=== PATIENT | male | born 1980 | race Caucasian/White ===

== ENCOUNTER 2016-03-07 03:48 | Inpatient (IN) | payer BC, MEDICAID ==
[~2016-03-07] VITALS: Ht 167.6 cm; Wt 115.2 kg
[2016-03-07] VITALS (9 sets, daily range): BP systolic 112–186; BP diastolic 49–80
[2016-03-07] MEDS ORDERED: SUCCINYLCHOLINE CHLORIDE 20 MG/ML 10ML VIAL IV ONE ×2 (04:20→04:30)
[2016-03-07] MEDS ORDERED: ETOMIDATE (2MG/ML) 20ML VIAL IV ONE ×2 (04:20→04:30)
[2016-03-07 04:33] LABS: Basophils # (auto) 0 uL; Basophils % (auto) 0.5 % (0.0-2.0); Eosinophils # (auto) 0.1 uL; Eosinophils % (auto) 2.5 % (0.0-7.0); Hematocrit 43.5 % (41.0-53.0); Hemoglobin 14.4 g/dL (13.5-17.5); Lymphocytes # (auto) 1.3 uL; Mean Corpuscular Hemoglobin 29.9 pg (28.0-32.0); Mean Corpuscular Volume 90.6 fL (80.0-100.0); Mean Platelet Volume 7.3 fL (7.4-10.4); Monocytes # (auto) 0.6 uL; Monocytes % (auto) 16.7 % (0.0-12.0); Neutrophils # (auto) 1.4 uL; Neutrophils % (auto) 41.3 % (37.0-80.0); Platelet Count (auto) 203 10^3/uL (140-450); Red Cell Distribution Width 14.1 % (11.6-16.0); White Blood Cell 3.5 10^3/uL (4.4-10.8)
[2016-03-07] MEDS ORDERED: PROPOFOL 100 ML IV ONE (04:37)
[2016-03-07] MEDS ORDERED: PROPOFOL 0 ML IV ONE (04:37)
[2016-03-07] MEDS ORDERED: PROPOFOL 100 ML IV SCH (04:45)
[2016-03-07 04:55] LABS: Albumin 3.6 g/dL (3.4-5.0); Anion Gap 8 (5-15); Aspartate Aminotransferase 23 U/L (15-37); BUN/Creatinine Ratio 15.2; Blood Urea Nitrogen 16 mg/dL (7-18); Calcium 7.7 mg/dL (8.5-10.1); Carbon Dioxide 27 mmol/L (21-32); Chloride 107 mmol/L (98-107); GFR African American 103 mL/min; GFR Non-African American 85 mL/min; Glucose 99 mg/dL (74-106); Potassium 3.5 mmol/L (3.5-5.1); Salicylate 1.9 mg/dL (2.8-20.0); Sodium 142 mmol/L (136-145)
[2016-03-07 04:57] LABS: Acetaminophen 6.5 ug/mL (10-30); Alkaline Phosphatase 89 U/L (45-117); Bilirubin, Total 0.2 mg/dL (0.2-1.0)
[2016-03-07 05:00] LABS: Urine RBC None Seen /hpf (0 - 3)
[2016-03-07 05:15] LABS: Urine Bilirubin Negative (Negative); Urine Blood Negative /uL (Negative); Urine Color Yellow (Yellow); Urine Glucose Normal (Normal); Urine Mucus FEW (None Seen); Urine Nitrite Negative (Negative); Urine Urobilinogen Normal (Negative); Urine pH 6.5 (5.0-8.0)
[2016-03-07 05:21] LABS: Urine Ketone 1+ (Negative)
[2016-03-07] MEDS ORDERED: SODIUM CHLORIDE 0.9% 1,000 ML IV ONE (06:30)
[2016-03-07] MEDS: PANTOPRAZOLE SODIUM 40 MG/10 ML VIAL IV SCH (10:10)
[2016-03-07] MEDS: ENOXAPARIN SOD 40 MG/0.4 ML SYRINGE SC SCH (10:10)
[2016-03-07] MEDS: PIPERACILLIN-TAZOB 3.375GM 100 ML IV SCH ×2 (11:29→17:48)
[2016-03-07] MEDS: SODIUM CHLORIDE 0.9% 1,000 ML IV SCH (13:30)
[2016-03-07] MEDS ORDERED: LORazepam 2MG/ML-1ML VIAL IV PRN (18:00)
[2016-03-07] MEDS ORDERED: cloNIDine HCL 0.1 MG TAB PO PRN (22:45)
[2016-03-07] MEDS: OXcarbazepine 300 MG TAB PO SCH (22:55)
[2016-03-08] MEDS: PIPERACILLIN-TAZOB 3.375GM 100 ML IV SCH ×3 (00:09→12:00)
[2016-03-08 00:11] VITALS: BP 164/92
[2016-03-08] MEDS ORDERED: ALPR2TAB2 PO (01:04)
[2016-03-08] MEDS ORDERED: NOR5T PO (01:05)
[2016-03-08 05:00] VITALS: BP 152/92
[2016-03-08 05:02] LABS: Basophils # (auto) 0 uL; Basophils % (auto) 0.3 % (0.0-2.0); Eosinophils # (auto) 0.1 uL; Eosinophils % (auto) 0.9 % (0.0-7.0); Hematocrit 44.7 % (41.0-53.0); Hemoglobin 14.6 g/dL (13.5-17.5); Lymphocytes # (auto) 1.3 uL; Lymphocytes % (auto) 17.8 % (10.0-50.0); Mean Corpuscular Hemoglobin 29.4 pg (28.0-32.0); Mean Corpuscular Hgb Conc. 32.7 g/dL (32.0-36.0); Monocytes # (auto) 0.5 uL; Monocytes % (auto) 6.9 % (0.0-12.0); Neutrophils # (auto) 5.5 uL; Neutrophils % (auto) 74.1 % (37.0-80.0); Platelet Count (auto) 170 10^3/uL (140-450); Red Cell Distribution Width 12.6 % (11.6-16.0); White Blood Cell 7.4 10^3/uL (4.4-10.8)
[2016-03-08 05:17] LABS: Albumin 3.5 g/dL (3.4-5.0); BUN/Creatinine Ratio 11.8; Bilirubin, Total 0.8 mg/dL (0.2-1.0); Potassium 3.9 mmol/L (3.5-5.1); Total Protein 6.9 g/dL (6.4-8.2)
[2016-03-08] MEDS: SODIUM CHLORIDE 0.9% 1,000 ML IV SCH (06:14)
[2016-03-08 09:06] VITALS: BP 151/91
[2016-03-08] MEDS: PANTOPRAZOLE SODIUM 40 MG/10 ML VIAL IV SCH (09:21)
[2016-03-08] MEDS: ENOXAPARIN SOD 40 MG/0.4 ML SYRINGE SC SCH (09:21)
[2016-03-08] MEDS: OXcarbazepine 300 MG TAB PO SCH (09:29)
[2016-03-08 13:06] VITALS: BP 163/87
[2016-03-08 13:36] VITALS: BP 164/92
== END 2016-03-08 15:18 | disposition home or self-care (01) | DRG 917 ==
LOC: EDBD 03:48 → ER 03:49 → TELE 03:50 → TELE-CENTR 23:48
PROVIDERS: ADMIT Family Medicine; ATTEND Internal Medicine
PROC: 0BH17EZ Insertion of Endotracheal Airway into Trachea, Via Natural or Artificial Opening (ICD-10-PCS; principal; 2016-03-07)
PROC: 5A1935Z Respiratory Ventilation, Less than 24 Consecutive Hours (ICD-10-PCS; 2016-03-07)
DX: T42.4X2A Poisoning by benzodiazepines, intentional self-harm, initial encounter (principal); G92 Toxic encephalopathy; J96.00 Acute respiratory failure, unspecified whether with hypoxia or hypercapnia; G40.209 Localization-related (focal) (partial) symptomatic epilepsy and epileptic syndromes with complex partial seizures, not intractable, without status epilepticus; E83.51 Hypocalcemia; D72.819 Decreased white blood cell count, unspecified; F17.210 Nicotine dependence, cigarettes, uncomplicated; F32.9 Major depressive disorder, single episode, unspecified; F41.9 Anxiety disorder, unspecified; F19.10 Other psychoactive substance abuse, uncomplicated; Y92.89 Other specified places as the place of occurrence of the external cause
CPT/HCPCS: 31500; 36415; 36600; 51702; 70450; 71010; 80053; 80320; 80329; 81001; 82805; 82962; 85025; 85049; 87070; 87077; 87186; 87205; 93005; 94002; C9113; G0434; J0330; J2543; J2704

== ENCOUNTER 2016-07-11 03:24 | Inpatient (IN) | payer MEDICARE, OTHER, MEDICAID ==
[~2016-07-11] VITALS: Ht 170.2 cm; Wt 145.1 kg
[~2016-07-11 03:24] MED LIST: ALPR2TAB2 PO; NOR5T PO
[2016-07-11 03:40] LABS: Allen Test Yes; Base Excess -3.2 mmol/L (-2.0-2.0); Blood 02Sat 91.5 % (96-100); Blood COHb 2.9 % (0.5-1.5); Blood MetHb 0.3 % (0.0-1.5); HCO3 22.7 mmol/L (22-26.0); HHb 8.2 % (0.0-5.0); MODE NASAL CANNULA; O2Hb 88.6 % (94.0-97.0); PCO2 43.4 mmHg (35.0-45.0); PCO2(T) 43.4 mmHg (35.0-45.0); PO2(T) 65.8 mmHg (80.0-100.0); Sample Type Arterial; pH 7.336 (7.350-7.450)
[2016-07-11] MEDS ORDERED: SODIUM CHLORIDE 0.9% 1,000 ML IV ONE ×2 (04:00→05:45)
[2016-07-11 04:18] LABS: Basophils # (auto) 0 uL; Basophils % (auto) 0.4 % (0.0-2.0); Eosinophils # (auto) 0.1 uL; Eosinophils % (auto) 1.6 % (0.0-7.0); Hematocrit 48.7 % (41.0-53.0); Hemoglobin 16.3 g/dL (13.5-17.5); Lymphocytes # (auto) 1.9 uL; Lymphocytes % (auto) 25.2 % (10.0-50.0); Mean Corpuscular Hgb Conc. 33.4 g/dL (32.0-36.0); Mean Corpuscular Volume 86.7 fL (80.0-100.0); Mean Platelet Volume 8.1 fL (7.4-10.4); Monocytes # (auto) 0.9 uL; Monocytes % (auto) 11.4 % (0.0-12.0); Neutrophils # (auto) 4.7 uL; Neutrophils % (auto) 61.4 % (37.0-80.0); Platelet Count (auto) 250 10^3/uL (140-450); Red Cell Distribution Width 15.4 % (11.6-16.0); White Blood Cell 7.6 10^3/uL (4.4-10.8)
[2016-07-11 04:29] LABS: INR 0.94 (0.9-1.15); Partial Thromboplastin Time 25.9 sec (22.64-33.71); Prothrombin Time 10.2 sec (9.37-12.3)
[2016-07-11 04:35] LABS: Albumin 4.1 g/dL (3.4-5.0); BUN/Creatinine Ratio 19.1; Calcium 8.2 mg/dL (8.5-10.1); Potassium 4.3 mmol/L (3.5-5.1)
[2016-07-11 04:37] LABS: Urine Bilirubin Negative (Negative); Urine Blood Negative /uL (Negative); Urine Color Yellow (Yellow); Urine Glucose Normal (Normal); Urine Hyaline Cast FEW /lpf (0 - 2); Urine Ketone TRACE (Negative); Urine Mucus FEW (None Seen); Urine Nitrite Negative (Negative); Urine RBC 1 /hpf (0 - 3); Urine Urobilinogen Normal (Negative); Urine pH 5.5 (5.0-8.0)
[2016-07-11 04:42] LABS: Salicylate < 1.7 mg/dL (2.8-20.0)
[2016-07-11 04:44] LABS: Acetaminophen < 2.0 ug/mL (10-30)
[2016-07-11 04:45] LABS: Bilirubin, Total 0.1 mg/dL (0.2-1.0); Total Protein 7.9 g/dL (6.4-8.2)
[2016-07-11] MEDS ORDERED: SODIUM CHLORIDE 0.9% 1,000 ML IV SCH ×2 (07:01→09:44)
[2016-07-11] MEDS ORDERED: NITROGLYCERIN 0.4 MG SL TAB SL PRN (07:15)
[2016-07-11] MEDS ORDERED: MORPHINE SULF INJ 2 MG/ML SYRINGE 1ML IV PRN (07:15)
[2016-07-11] MEDS ORDERED: ONDANSETRON HCL 4 MG/2 ML VIAL IV PRN (07:15)
[2016-07-11 08:21] LABS: Base Excess -2.4 mmol/L (-2.0-2.0); Blood 02Sat 87.7 % (96-100); Blood COHb 2.3 % (0.5-1.5); Blood MetHb 0.2 % (0.0-1.5); HCO3 23.9 mmol/L (22-26.0); MODE ROOM AIR; O2Hb 85.5 % (94.0-97.0); PCO2 47.2 mmHg (35.0-45.0); PCO2(T) 47.2 mmHg (35.0-45.0); PO2 57.5 mmHg (80.0-100.0); PO2(T) 57.5 mmHg (80.0-100.0); Room 1034-ERT; Sample Type Arterial; pH 7.323 (7.350-7.450)
[2016-07-11 09:45] VITALS: BP 101/52
[2016-07-11] MEDS ORDERED: PANTOPRAZOLE SODIUM 40 MG/10 ML VIAL IV SCH (10:00)
[2016-07-11 12:17] LABS: PO2 65.8 mmHg (80.0-100.0)
== END 2016-07-11 10:30 | disposition left against medical advice (07) | DRG 917 ==
LOC: ER 03:24 → TELE 03:25
PROVIDERS: ADMIT Nurse Practitioner; ATTEND Internal Medicine
DX: T50.901A Poisoning by unspecified drugs, medicaments and biological substances, accidental (unintentional), initial encounter (principal); G92 Toxic encephalopathy; Z68.43 Body mass index [BMI] 50.0-59.9, adult; E66.01 Morbid (severe) obesity due to excess calories; R41.82 Altered mental status, unspecified; R53.83 Other fatigue; F41.9 Anxiety disorder, unspecified; F19.10 Other psychoactive substance abuse, uncomplicated; Z83.3 Family history of diabetes mellitus; Y92.89 Other specified places as the place of occurrence of the external cause
CPT/HCPCS: 36415; 36600; 70450; 71010; 80053; 80307; 80329; 81001; 82805; 83735; 85025; 85610; 85730; 93005; 96360; 96361

== ENCOUNTER 2016-11-30 17:40 | Emergency (ER) | payer OTHER, MEDICAID ==
[~2016-11-30] VITALS: Ht 172.7 cm; Wt 90.7 kg
[~2016-11-30 17:40] MED LIST changes: +HYDR-4663 PO; -NOR5T PO
[2016-11-30 18:22] VITALS: BP 144/93
== END 2016-11-30 19:32 | disposition left against medical advice (07) ==
LOC: EDBD 17:40 → ER 17:45
DX: F10.10 Alcohol abuse, uncomplicated (principal); Z53.21 Procedure and treatment not carried out due to patient leaving prior to being seen by health care provider

== ENCOUNTER 2018-10-29 11:26 | Emergency (ER) | payer MEDICAID, OTHER ==
[~2018-10-29] VITALS: Ht 172.7 cm; Wt 108.9 kg
[~2018-10-29 11:26] MED LIST changes: -HYDR-4663 PO; +HYDR-4833 PO
[2018-10-29 12:16] VITALS: BP 125/72
== END 2018-10-29 14:28 | disposition home or self-care (01) ==
LOC: ER 11:31
DX: S93.491A Sprain of other ligament of right ankle, initial encounter (principal); W19.XXXA Unspecified fall, initial encounter; Y93.89 Activity, other specified; Y99.8 Other external cause status; Y92.89 Other specified places as the place of occurrence of the external cause
CPT/HCPCS: 29515; 73610; 73630